=== PATIENT | male | born 1960 | race Caucasian/White ===

== ENCOUNTER 2020-02-19 09:54 | Outpatient (CLI) | payer MEDICARE, SELFPAY ==
--- NOTE | 2020-02-19 09:30 | USCV_ITS ---
Mike Schwartz Age: 59 Gender: M : 1960 Exam Date: 02/19/2020 10:15 Ordering Phys: Jair Morales MD ([email or web address]) Technologist: Abdirizak Alcazar [place] [facility] [place]: CP BP: 140 / 75 HR: 54 Rhythm: Sinus Technical Quality: Good MEASUREMENTS (Male / Female) Normal Values 2D ECHO LV Diastolic Diameter PLAX 4.1 cm 4.2 - 5.9 / 3.9 - 5.3 cm LV Systolic Diameter PLAX 2.3 cm IVS Diastolic Thickness 0.8 cm 0.6 - 1.0 / 0.6 - 0.9 cm IVS Systolic Thickness 1.3 cm LVPW Diastolic Thickness 0.9 cm 0.6 - 1.0 / 0.6 - 0.9 cm LVPW Systolic Thickness 1.4 cm LVOT Diameter 2.0 cm LV Ejection Fraction 2D Teich 76.4 % LV Ejection Fraction MOD 2C 67.4 % LV Ejection Fraction 2C AL 66.6 % LA Diameter 3.9 cm LA Width 3.5 cm LA Height 4.9 cm RA Width 3.8 cm RA Height 4.2 cm Aorta at Sinotubular Diameter 4.1 cm M-MODE LV Diastolic Diameter MM 4.4 cm 4.2 - 5.9 / 3.9 - 5.3 cm LV Systolic Diameter MM 3.0 cm LV Ejection Fraction MM Teich 59.8 % IVS Diastolic Thickness MM 1.3 cm 0.6 - 1.0 / 0.6 - 0.9 cm IVS Systolic Thickness MM 1.6 cm LVPW Diastolic Thickness MM 1.3 cm 0.6 - 1.0 / 0.6 - 0.9 cm LVPW Systolic Thickness MM 2.3 cm RV Diastolic Diameter MM 1.5 cm Aortic Annulus Diameter 4.1 cm LA Ao Ratio MM 0.9 MV E Point Septal Separation 1.0 cm DOPPLER AV Peak Velocity 111.0 cm/s LVOT Peak Velocity 108.0 cm/s AV Area Cont Eq vti 3.3 cm squared AV Area Cont Eq pk 3.0 cm squared MV Area PHT 5.0 cm squared Mitral E to A Ratio 1.2 MV E' Velocity 11.0 cm/s Mitral E to MV E' Ratio 7.1 Mitral E to LV E' Lateral Ratio 6.9 Mitral E to LV E' Septal Ratio 7.3 TR Peak Velocity 131.0 cm/s TR Peak Gradient 6.9 mmHg TV Peak E Velocity 98.0 cm/s Right Atrial Pressure 3.0 mmHg Pulmonary Artery Systolic Pressu 9.9 mmHg PV Peak Velocity 74.0 cm/s FINDINGS Left Ventricle Normal left ventricular size and systolic function, EF 72 %. No regional wall motion abnormalities. Right Ventricle Mildly increased right ventricular size. Normal right ventricular systolic function. Right Atrium Mildly increased right atrial size. Left Atrium The left atrium is normal in size. Mitral Valve Thickened mitral valve. Aortic Valve No gross abnormalities noted. leaflets could not be delineated well Tricuspid Valve No gross abnormalities noted Pulmonic Valve No gross abnormalities noted Pericardium Normal pericardium without effusion. Aorta Dilated ascending aorta, measuring 4.2 cm in diameter CONCLUSIONS Normal left ventricular size and systolic function, EF 72 %. No regional wall motion abnormalities. Dilated ascending aorta, measuring 4.2 cm in diameter. Mildly increased right atrial size. Thickened mitral valve. No significant stenotic or regurgitant lesions. Compared to the study from 11/18/2016, there may not be a significant change Dr Jair Morales MD [facility] (Electronically Signed) Final Date: 20 February 2020 08:50 S
== END 2020-02-19 09:55 | disposition home or self-care (01) ==
LOC: RAD 09:54
PROVIDERS: PCP Family Medicine; Visit Provider Internal Medicine Cardiovascular Disease
DX: I71.2 Thoracic aortic aneurysm, without rupture (principal); R07.9 Chest pain, unspecified; I05.9 Rheumatic mitral valve disease, unspecified
CPT/HCPCS: 93306

== ENCOUNTER → 2021-01-19 11:46 | Outpatient (BNVA) | payer MEDICARE, SELFPAY | PROVIDERS: PCP Family Medicine; Visit Provider Internal Medicine Cardiovascular Disease | DX: R06.02 Shortness of breath (principal); I71.2 Thoracic aortic aneurysm, without rupture; R07.89 Other chest pain; E78.5 Hyperlipidemia, unspecified | CPT/HCPCS: 80061 ==

== ENCOUNTER 2021-02-24 07:14 | Outpatient (CLI) | payer MEDICARE, SELFPAY ==
[2021-02-24 07:38] VITALS: BMI 25.8
--- NOTE | 2021-02-24 07:41 | ECG_ITS ---
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 Interpretive Statements NAME OF STUDY: LEXISCAN SESTAMIBI STRESS TEST INDICATION: Sob, PROCEDURE: At the baseline, the EKG revealed normal sinus rhythm with a poor R wave progression. The baseline blood pressure was 119/81 mm Hg with a heart rate of 71 beats/min. Lexiscan was infused over a period of 20 seconds. A total of 0.4 milligrams of Lexiscan was infused. The stress phase was continued for a total of 5 minutes. Heart rate at the end of the stress phase was 78 with a blood pressure 133/86. The EKG at the peak infusion revealed no significant changes. Sestamibi was injected 20 seconds after the Lexiscan infusion. Blood pressure at the end of the recovery phase was 130/81 with a heart rate of 81 per minute. CONCLUSION: 1. No significant EKG changes with the LexiScan infusion 2. No LexiScan induced chest pain or cardiac arrhythmia 3. Normal blood pressure and heart rate response 4. Sestamibi/sestamibi perfusion scan pending; see separate report. Electronically Signed On 02-25-2021 7:15:27 CDT by Jair Morales M.D. [id number]
--- NOTE | 2021-02-24 07:41 | NMCV_ITS ---
NM tino perf SPECT r/s* [id number] Mike Schwartz Age: 60 Gender: M : 1960 Exam Date: 02/24/2021 08:10 Ordering Phys: Jair Morales MD ([email or web address]) Technologist: ZBIGNIEW Rooney Exam Location: [facility] Indications: SHORTNESS OF BREATH STRESS TEST [facility] IMAGE PROTOCOL Rest/Stress 1 Lexiscan Day Radiopharmaceutical Dose (mCi) Administration Site Administered by Rest: Tc-99m 10.9 IV ZBIGNIEW Nelson Sestamibi Stress:Tc-99m 32.8 IV ZBIGNIEW Nelson Sestamibi Rest: 24-Feb-2021 60 Discovery 630 Stress: 24-Feb-2021 30 Discovery 630 0.4mg Lexiscan. Supine position only as patient was unable to lay prone. SPECT RESULTS Technical Quality: Excellent Raw Data Analysis: Normal Image Corrections: No attenuation or motion correction applied Summed Stress Score: 1 Summed Rest Score: 2 Summed Difference Score: 0 PERFUSION FINDINGS Small area of slightly decreased tracer uptake was noted in the basal and mid inferior wall segment with no significant reversibility. FUNCTIONAL RESULTS (calculated via Gated SPECT) Stress Image LV EF (%): 82 Stress EDV (mL):94 TID: 0.95 Stress ESV (mL):17 FUNCTIONAL FINDINGS: Segmental wall motion analysis revealing no gross wall motion abnormalities. IMPRESSIONS 1. Myocardial perfusion imaging revealing a small area of slightly decreased persistent tracer uptake in the inferior wall region, suggestive of myocardial scarring versus attenuation artifact. 2. Normal LV ejection fraction 82%. 3. LV wall motion analysis revealing no gross wall motion normalities. 4. Normal LV volume. No significant coronary ischemia, based on the above findings Dr Jair Morales MD [facility] (Electronically Signed) Final Date: 25 February 2021 06:16 S
--- NOTE | 2021-02-24 09:31 | PC.NURSE ---
pt not able to hit target heart rate. dr adan verbal order to change to alexia
[2021-02-24] MEDS: regadenoson 0.4 Mg/5 ml Syringe IVP (09:32)
[2021-02-24 09:49] VITALS: BP 130/81; PULSE 78
== END 2021-02-24 07:15 | disposition home or self-care (01) ==
LOC: CDL 07:19
PROVIDERS: PCP Family Medicine; Visit Provider Internal Medicine Cardiovascular Disease
DX: R07.89 Other chest pain (principal)
CPT/HCPCS: 78452; 93017; A9500; J2785

== ENCOUNTER → 2021-06-01 15:35 | Outpatient (BNVA) | payer MEDICARE, SELFPAY | PROVIDERS: PCP Family Medicine; Visit Provider Nurse Practitioner Family | DX: R50.9 Fever, unspecified (principal); R82.90 Unspecified abnormal findings in urine; R30.0 Dysuria; Z12.5 Encounter for screening for malignant neoplasm of prostate | CPT/HCPCS: 80053; 81000; 86000; 86618; 86666; 86757; 87077; 87086; 87184; G0103 ==

== ENCOUNTER → 2021-06-17 09:10 | Outpatient (BNVA) | payer MEDICARE, SELFPAY | PROVIDERS: PCP Family Medicine; Visit Provider Urology | DX: R97.20 Elevated prostate specific antigen [PSA] (principal) | CPT/HCPCS: 84153 ==

== ENCOUNTER → 2021-07-13 15:05 | Outpatient (BNVA) | payer MEDICARE, SELFPAY | PROVIDERS: PCP Family Medicine; Visit Provider Urology | DX: R97.20 Elevated prostate specific antigen [PSA] (principal) | CPT/HCPCS: 84153 ==

== ENCOUNTER → 2021-07-22 12:00 | Outpatient (BNVA) | payer MEDICARE, SELFPAY | PROVIDERS: PCP Family Medicine; Visit Provider Internal Medicine Cardiovascular Disease | DX: E78.5 Hyperlipidemia, unspecified (principal); E78.2 Mixed hyperlipidemia | CPT/HCPCS: 80061 ==

== ENCOUNTER 2021-10-20 11:32 | Outpatient (CLI) | payer MEDICARE, SELFPAY ==
--- NOTE | 2021-10-20 12:18 | CT_ITS ---
WS: [id number] CT angio chest [id number] REASON FOR EXAM: expanding aorta TECHNIQUE: Coronal and sagittal 2-D and MIP reformations. IV CONTRAST ADMINISTERED: 95 mL of Omnipaque 350 TOTAL EXAM DLP: 1326.[address] scans at [facility] use at least one of these dose optimization techniques: automat ed exposure control; mA and/or kV adjustment per patient size (includes targeted exams where dose is matched to clinical indication); or iterative reconstruction. FINDINGS: Normal pulmonary arteries. The ascending thoracic aorta measured anterior to the right main pulmonary artery measures 4.5 cm. M easuring this same segment of the thoracic aorta on the previous examination of 12/20/2017 also reveal s 4.5 cm. There is thickening thickening of the left ventricular myocardium, no change. No valvular c alcification. Previous aortocoronary bypass surgery. Small reactive nodes in the mediastinum and hilar regions with no interval change compared to the pre vious examination. No lung nodule or lung mass. No pleural effusion. Degenerative changes in the thoracic spine. No focal lesion of the bony thorax. CT/CT angio chest [id number] IMPRESSION: Stable abnormal chest CT with descending thoracic aorta diameter 4.5 cm. Left ventricular hypertrophy.
[2021-10-20] MEDS: iohexol 300 mg/mL 100 mL Btl IV (13:12)
[2021-10-20 13:50] LABS: Blood Urea Nitrogen 18 mg/dL (8-23); Glomerular Filtration Rate 75.7 mL/min (90-130)
== END 2021-10-20 11:33 | disposition home or self-care (01) ==
PROVIDERS: PCP Family Medicine; Visit Provider Internal Medicine Cardiovascular Disease
DX: Z01.812 Encounter for preprocedural laboratory examination (principal); I71.2 Thoracic aortic aneurysm, without rupture
CPT/HCPCS: 71275; 82565; 84520

== ENCOUNTER → 2022-01-13 09:57 | Outpatient (BNVA) | payer MEDICARE, SELFPAY | PROVIDERS: PCP Family Medicine; Visit Provider Internal Medicine Cardiovascular Disease | DX: I10 Essential (primary) hypertension (principal); E78.2 Mixed hyperlipidemia; R97.20 Elevated prostate specific antigen [PSA] | CPT/HCPCS: 80061; 80076; 84153 ==

== ENCOUNTER → 2022-06-06 15:19 | Outpatient (BNVA) | payer MEDICARE, SELFPAY | PROVIDERS: PCP Family Medicine; Visit Provider Nurse Practitioner Family | DX: K90.49 Malabsorption due to intolerance, not elsewhere classified (principal); L50.0 Allergic urticaria; W57.XXXA Bitten or stung by nonvenomous insect and other nonvenomous arthropods, initial encounter | CPT/HCPCS: 86003; 86008 ==

== ENCOUNTER → 2022-09-27 14:03 | Outpatient (BNVA) | payer MEDICARE, SELFPAY | PROVIDERS: PCP Family Medicine; Visit Provider Internal Medicine Cardiovascular Disease | DX: I25.10 Atherosclerotic heart disease of native coronary artery without angina pectoris (principal); E78.2 Mixed hyperlipidemia; I10 Essential (primary) hypertension; G47.33 Obstructive sleep apnea (adult) (pediatric); I71.20 Thoracic aortic aneurysm, without rupture, unspecified; F17.200 Nicotine dependence, unspecified, uncomplicated | CPT/HCPCS: 99214 ==

== ENCOUNTER → 2022-11-07 10:56 | Outpatient (BNVA) | payer MEDICARE, SELFPAY | PROVIDERS: PCP Family Medicine; Visit Provider Internal Medicine Cardiovascular Disease | DX: E78.2 Mixed hyperlipidemia (principal); I10 Essential (primary) hypertension; I25.10 Atherosclerotic heart disease of native coronary artery without angina pectoris; R07.89 Other chest pain | CPT/HCPCS: 80061; 80076 ==

== ENCOUNTER 2022-12-16 11:50 | Outpatient (CLI) | payer MEDICARE, SELFPAY ==
--- NOTE | 2022-12-16 12:27 | XR_ITS ---
WS: [id number] Thoracic spine, AP and lateral views, 12/16/2022 Clinical Data: M54.9 - Dorsalgia, unspecified Comparison: None. Findings: No compression fractures are seen. The disc heights are normal. There is moderate osteoarthritis of all the thoracic vertebral bodies. The paravertebral regions are not remarkable. XR/XR thoracic spine 3V* [id number] Impression: Moderate osteoarthritis of the thoracic vertebral bodies.
--- NOTE | 2022-12-16 12:27 | XR_ITS ---
WS: [id number] Lumbar spine, 3 views, 12/16/2022 Clinical Data: M54.9 - Dorsalgia, unspecified Comparison: None. Findings: No compression fractures or subluxation is seen. There is degenerative disc narrowing at L4-L5 and L5 -S1. Anterior osteophyte formation occurs from L2 through L5. The transverse processes and SI joints are normal. There is a slight dextroscoliosis. XR/XR lumbar spine 2-3V* [id number] Impression: 1. Degenerative disc narrowing at L4-L5 and L5-S1. 2. Osteophytes from L2 through L5
== END 2022-12-16 11:51 | disposition home or self-care (01) ==
PROVIDERS: PCP Family Medicine; Visit Provider Nurse Practitioner Family
DX: M47.814 Spondylosis without myelopathy or radiculopathy, thoracic region (principal); G89.29 Other chronic pain; M48.07 Spinal stenosis, lumbosacral region; M25.78 Osteophyte, vertebrae
CPT/HCPCS: 72072; 72100

== ENCOUNTER → 2022-12-29 13:57 | Outpatient (BNVA) | payer MEDICARE, SELFPAY | PROVIDERS: PCP Family Medicine; Referring Provider Nurse Practitioner Family; Visit Provider Physician Assistant | DX: M47.26 Other spondylosis with radiculopathy, lumbar region (principal); M54.9 Dorsalgia, unspecified; M51.36 Other intervertebral disc degeneration, lumbar region; G89.29 Other chronic pain | CPT/HCPCS: 99203 ==

== ENCOUNTER 2023-01-17 13:48 | Outpatient (CLI) | payer MEDICARE, SELFPAY ==
--- NOTE | 2023-01-17 13:45 | MR_ITS ---
WS: [id number] MRI LUMBAR SPINE NONCONTRAST TECHNIQUE: Sagittal T1, T2 and STIR imaging. Axial T1 and T2 imaging. CLINICAL INFORMATION: low back pain COMPARISON: None. FINDINGS: Mild lumbar curve. No acute compression. Disc bulging worse at L4-L5 and L5-S1. Slight anterolisthesi s L4 on L5. L1-L2: Normal. L2-L3: Mild annular bulging. Slight effacement of ventral thecal sac. Narrowing subarticular recess b ilaterally. Small RIGHT foraminal protrusion with contact of the exiting RIGHT L2 nerve root. Mild fa cet arthropathy. L3-L4: Mild annular bulge with mild central canal stenosis. Impingement traversing L4 nerve roots armando aterally. Mild LEFT foraminal narrowing. Mild to moderate facet arthropathy. L4-L5: Shallow central disc protrusion with moderate central canal stenosis. Impingement traversing L 5 nerve roots bilaterally. Disc material extends into LEFT subarticular recess. Moderate RIGHT forami nal narrowing with slight impingement on the exiting L4 nerve root. Mild LEFT foraminal narrowing. Mo derate facet arthropathy. L5-S1: Tiny shallow central protrusion. Slight impingement traversing S1 nerve roots bilaterally. Mil d bilateral foraminal narrowing. Visualized pelvic bony structures: Normal. Paravertebral soft tissues: Normal. Small LEFT renal cyst. MR/MR lumbar spine wo con* [id number] IMPRESSION: 1. Shallow central disc protrusion L4-L5 with moderate central canal stenosis. Disc material extends into the LEFT subarticular recess with impingement trave rsing LEFT greater than RIGHT L5 nerve roots. 2. Mild to moderate RIGHT L4-L5 foraminal narrowing impinges the exiting RIGHT L4 nerve root. 3. Mild central canal stenosis L3-L4 with mild annular bulging and tiny annula r fissure. Impingement traversing L4 nerve roots. 4. Mild LEFT L3-L4 foraminal narrowing. 5. Shallow central protrusion L5-S1 with slight impingement traversing S1 nerv e roots. Mild RIGHT greater than LEFT foraminal narrowing at this level. 6. Mild RIGHT L2-L3 foraminal narrowing. 7. Moderate facet arthropathy worse L4-L5.
== END 2023-01-17 13:49 | disposition home or self-care (01) ==
PROVIDERS: PCP Family Medicine; Visit Provider Physician Assistant
DX: M47.26 Other spondylosis with radiculopathy, lumbar region (principal); M51.27 Other intervertebral disc displacement, lumbosacral region; M48.061 Spinal stenosis, lumbar region without neurogenic claudication
CPT/HCPCS: 72148; 99203

== ENCOUNTER → 2023-01-31 11:11 | Outpatient (BNVA) | payer MEDICARE, SELFPAY | PROVIDERS: PCP Family Medicine; Visit Provider Physician Assistant | DX: M48.062 Spinal stenosis, lumbar region with neurogenic claudication (principal); G89.29 Other chronic pain; M54.9 Dorsalgia, unspecified; M47.26 Other spondylosis with radiculopathy, lumbar region | CPT/HCPCS: 99213 ==

== ENCOUNTER 2023-02-08 10:07 | Outpatient (CLI) | payer MEDICARE, SELFPAY ==
--- NOTE | 2023-02-08 10:30 | CT_ITS ---
WS: [id number] CTA THORACIC TECHNIQUE: Contrast enhanced CTA of the thoracic aorta with coronal and sagittal reformatted images a nd maximum intensity projection (MIP) images. CLINICAL INFORMATION: aneurysm COMPARISON: CTA October 20, 2021 . DLP: 660.[address] scans at [facility] use at least one of these dose optimization techniques: automated e xposure control; mA and/or kV adjustment per patient size (includes targeted exams where dose is matc hed to clinical indication); or iterative reconstruction. FINDINGS: Mild chronic emphysematous changes. Both lungs are well aerated. No acute pulmonary infiltrates. Slig ht bibasilar atelectasis. Adrenal glands are normal. Small esophageal hiatal hernia. Mild thoracic kyphosis. Hypertrophic blackburn es thoracic spine. Ascending thoracic aorta measures 4.3 cm unchanged compared to previous. Normal ca liber aortic arch and descending thoracic aorta. Celiac and SMA are patent. Slightly aneurysmal upper abdominal aorta partially visualized measuring 1.9 x 2.1 cm. Adrenal glands are normal. Partially visualized renal parenchymal enhancement appears normal CT/CT angio chest [id number] IMPRESSION: 1. No significant changes compared to previous. 2. Stable ascending thoracic aortic aneurysm measuring 4.3 CM. 3. Slightly aneurysmal upper abdominal aorta partially visualized measuring 1. 9 x 2.1 cm. 4. Lungs are well aerated. 5. Small esophageal hiatal hernia.
[2023-02-08 10:57] LABS: Blood Urea Nitrogen 20 mg/dL (8-23); Glomerular Filtration Rate 85.2 mL/min (90-130)
[2023-02-08] MEDS: iohexol 350 mg/mL 500 mL Btl (per mL) IV (11:11)
== END 2023-02-08 10:08 | disposition home or self-care (01) ==
PROVIDERS: PCP Family Medicine; Visit Provider Internal Medicine Cardiovascular Disease
DX: I71.20 Thoracic aortic aneurysm, without rupture, unspecified (principal); Z01.89 Encounter for other specified special examinations
CPT/HCPCS: 71275; 82565; 84520; 99214; Q9967

== ENCOUNTER → 2023-04-04 15:37 | Outpatient (BNVA) | payer MEDICARE, SELFPAY | PROVIDERS: PCP Family Medicine; Visit Provider Internal Medicine Cardiovascular Disease | DX: I25.10 Atherosclerotic heart disease of native coronary artery without angina pectoris (principal); I10 Essential (primary) hypertension; E78.2 Mixed hyperlipidemia; G47.33 Obstructive sleep apnea (adult) (pediatric); I71.20 Thoracic aortic aneurysm, without rupture, unspecified; F17.200 Nicotine dependence, unspecified, uncomplicated | CPT/HCPCS: 99214 ==

== ENCOUNTER → 2023-10-16 15:29 | Outpatient (BNVA) | payer MEDICARE, SELFPAY | PROVIDERS: PCP Family Medicine; Visit Provider Internal Medicine Cardiovascular Disease | DX: I71.20 Thoracic aortic aneurysm, without rupture, unspecified (principal); E78.5 Hyperlipidemia, unspecified; E78.2 Mixed hyperlipidemia; I10 Essential (primary) hypertension; I25.10 Atherosclerotic heart disease of native coronary artery without angina pectoris; F17.210 Nicotine dependence, cigarettes, uncomplicated | CPT/HCPCS: 99214 ==

== ENCOUNTER 2023-10-19 11:30 | Outpatient (CLI) | payer MEDICARE, SELFPAY ==
[2023-10-19 12:50] LABS: Chol HDL Ratio 3.11 mg/dL (1.0-5.00); Cholesterol 118 mg/dL (0-200); HDL Cholesterol 38 mg/dL (60-100); LDL Cholesterol Calculated 62 mg/dL (50-129); LDL HDL Ratio 1.63 RATIO (0.00-3.22); Triglycerides 90 mg/dL (0-150)
== END 2023-10-19 11:31 | disposition home or self-care (01) ==
LOC: LAB 11:31
PROVIDERS: PCP Family Medicine; Visit Provider Internal Medicine Cardiovascular Disease
DX: E78.5 Hyperlipidemia, unspecified (principal)
CPT/HCPCS: 36415; 80061

== ENCOUNTER → 2023-10-20 10:50 | Outpatient (BNVA) | payer MEDICARE, SELFPAY | PROVIDERS: PCP Family Medicine; Visit Provider Nurse Practitioner Family | DX: Z86.19 Personal history of other infectious and parasitic diseases (principal); R52 Pain, unspecified; R53.83 Other fatigue | CPT/HCPCS: 86000; 86618; 86666; 86757 ==

== ENCOUNTER → 2023-10-30 08:26 | Outpatient (BNVA) | payer MEDICARE, SELFPAY | PROVIDERS: PCP Family Medicine; Visit Provider Nurse Practitioner Family | DX: Z86.19 Personal history of other infectious and parasitic diseases (principal); R52 Pain, unspecified; R53.83 Other fatigue | CPT/HCPCS: 86160; 86668 ==

== ENCOUNTER → 2023-12-07 10:50 | Outpatient (BNVA) | payer MEDICARE, SELFPAY | PROVIDERS: PCP Nurse Practitioner Family; Visit Provider Nurse Practitioner Family | DX: I10 Essential (primary) hypertension (principal); R52 Pain, unspecified; M79.10 Myalgia, unspecified site; R53.83 Other fatigue; E78.2 Mixed hyperlipidemia; A69.20 Lyme disease, unspecified; R50.9 Fever, unspecified | CPT/HCPCS: 80053; 80061; 82306; 82607; 84443; 85025; 85651; 86141 ==

== ENCOUNTER → 2023-12-14 10:59 | Outpatient (BNVA) | payer MEDICARE, SELFPAY | PROVIDERS: PCP Nurse Practitioner Family; Referring Provider Nurse Practitioner Family; Visit Provider Nurse Practitioner Family | DX: L57.0 Actinic keratosis (principal); L82.1 Other seborrheic keratosis; L57.8 Other skin changes due to chronic exposure to nonionizing radiation; D22.62 Melanocytic nevi of left upper limb, including shoulder; L81.4 Other melanin hyperpigmentation; H01.134 Eczematous dermatitis of left upper eyelid | CPT/HCPCS: 17000; 99203 ==

== ENCOUNTER → 2023-12-26 11:15 | Outpatient (BNVA) | payer MEDICARE, SELFPAY | PROVIDERS: PCP Nurse Practitioner Family; Visit Provider Nurse Practitioner Family | DX: R53.83 Other fatigue (principal); Z12.5 Encounter for screening for malignant neoplasm of prostate; R50.9 Fever, unspecified; A69.20 Lyme disease, unspecified; W57.XXXA Bitten or stung by nonvenomous insect and other nonvenomous arthropods, initial encounter; Z86.19 Personal history of other infectious and parasitic diseases | CPT/HCPCS: 86160; 86618; 86666; 86668; 86757; G0103 ==

== ENCOUNTER 2024-01-18 12:45 | Emergency (ER) | payer MEDICARE, SELFPAY ==
--- NOTE | 2024-01-18 12:45 | ECG_ITS ---
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 Measurements Intervals [place] Rate: 65 P: 45 TX: 181 QRS: -13 QRSD: 105 T: 57 QT: 381 QTc: 398 Interpretive Statements SINUS RHYTHM POSSIBLE LEFT ATRIAL ENLARGEMENT [-0.1mV P-WAVE IN V1/V2] SEPTAL MYOCARDIAL INFARCTION , PROBABLY OLD [40+ ms Q WAVE IN V1/V2] Compared to ECG 01/28/2017 10:31:36 Myocardial infarct finding now present Electronically Signed On 01-18-2024 22:01:02 CDT by Jair Morales M.D. [id number] f
[2024-01-18 12:47] VITALS: BP 113/76; PULSE 60; RESP 16; TEMP 36.6; O2SAT 96; BMI 25.8
--- NOTE | 2024-01-18 13:17 | PC.NURSE ---
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
[2024-01-18 13:26] VITALS: BP 118/76; PULSE 60; RESP 18; O2SAT 93
[2024-01-18 13:29] LABS: Basophils % 0.6 %; Eosinophils # 0.2 10^3/uL (0.0-0.8); Eosinophils % 2.5 %; Hematocrit 45.3 % (37-53); Lymphocytes # 3.2 10^3/uL (0.8-4.8); Lymphocytes % 44.9 %; Mean Corpuscular HGB Conc 32.9 g/dL (30-55); Mean Corpuscular Hemoglobin 30.2 pg (27-33); Mean Corpuscular Volume 91.9 fl (82-101); Mean Platelet Volume 8.8 fL (7.4-10.4); Monocytes # 0.5 10^3/uL (0.2-0.9); Neutrophils # 3.18 10^3/uL (1.8-7.7); Neutrophils % 44.9 %; Nucleated Red Blood Cells % 0 %; Platelet Count 246 10^3/cmm (157-399); Red Blood Count 4.93 10^6/uL (3.85-5.65); Red Cell Distribution Width 12.8 % (12.1-15.1)
[2024-01-18 13:45] LABS: Alanine Aminotransferase 16 U/L (0-41); Albumin Level 4.3 g/dL (3.5-5.2); Alkaline Phosphatase 68 U/L (40-130); Anion Gap 14.3 (5-19); Aspartate Amino Transferase 20 U/L (0-40); Blood Urea Nitrogen 16 mg/dL (8-23); Calcium 9.3 mg/dL (8.5-10.5); Carbon Dioxide 27 mmol/L (22-29); Chloride 104 mmol/L (98-107); Creatinine Clr Calc Pharmacy 86.9914; Globulin 2.9 g/dL (1.3-4.6); Glucose 105 mg/dL (65-115); Osmolality Calculated 294 mOsm/kg (285-295); Potassium 4.3 mmol/L (3.5-5.1); Sodium 141 mmol/L (136-145); Total Bilirubin 0.8 mg/dL (0.15-1.2); Total Protein 7.2 g/dL (6.6-8.7)
[2024-01-18 14:00] VITALS: BP 114/77; PULSE 57; RESP 14; O2SAT 95
--- NOTE | 2024-01-18 14:13 | ED_ITS ---
HPI - Chest Pain 2 General: Chief Complaint: Chest Pain Stated Complaint: chest pain Time Seen by Provider: 01/18/24 13:14 Source: patient Mode of arrival: ambulatory History of Present Illness: 63-year-old male presents emergency room complaining of chest discomfort. Is been going on intermittently for the last couple of days. He has not noticed anything that makes it better or worse she has a known history of coronary disease and about 12 years ago had a heart attack he had several stents placed he is still taking clopidogrel he does not take aspirin daily. He has not noticed anything that aggravates or relieves his symptoms. He does have Lyme's disease states he is having a flareup of this and he has had 2 full rounds of doxycycline and is currently on his third. He has no radiation of pain to the back or arms at this time. He does have a known history of an aneurysm that has been stable for the last several years. MD complaint: chest pain Pertinent past history: coronary artery disease Onset (ago): day(s) Timing of current episode: episodic Prior episodes: Yes Onset: during rest Pain location: left chest Pain radiation: left arm Severity: mild Quality: aching and heaviness Relieving factors: nothing Exacerbating factors: nothing Associated symptoms: Deny abdominal pain, diaphoresis, dyspnea, fever(s), leg edema, nausea, palpitations, sense of impending doom, syncope or vomiting Treatment prior to arrival: none Review of Systems 2 Const: Denies: fever(s), chills or diaphoresis Card: Denies: chest pain, palpitations or syncope Resp: Denies: dyspnea GI: Denies: abdominal pain, nausea or vomiting : Denies: dysuria, urinary frequency or urinary urgency Musc: Denies: neck pain or back pain Skin/Breast: Denies: rash PFSH ED 2 PFSH: Medical History Lyme disease Atypical chest pain CAD (coronary artery disease) Hypertension Hyperlipidemia Thoracic aortic aneurysm GERD (gastroesophageal reflux disease) Anxiety ADALBERTO (obstructive sleep apnea) Surgical History S/P knee replacement Family History Father CAD (coronary artery disease) Grandfather CAD (coronary artery disease) Mother Cancer Hyperlipidemia Hypertension Grandmother Cancer Stroke Sister Diabetes Other Psychiatric illness Denies family history of Clotting disorder Dementia Chronic kidney disease (CKD) Suicide Anesthesia complication Bleeding disorder Lung disease Social History Smoking and tobacco/nicotine status: current every day tobacco/nicotine user cigarettes Packs smoked per day: 1 Alcohol intake: never Substance/Drug Use: never Physical Exam 2 Const: COMMON NORMALS: no acute distress GENERAL APPEARANCE: cooperative and comfortable ORIENTATION/CONSCIOUSNESS: Yes awake, Yes oriented to person, Yes oriented to place and Yes oriented to time HENMT: COMMON NORMALS: normocephalic, atraumatic and hearing grossly normal bilaterally HEAD & SCALP: normocephalic and atraumatic Resp: COMMON NORMALS: normal respiratory effort, No retractions, No use of accessory muscles and clear to auscultation bilaterally AUSCULTATION: clear to auscultation bilaterally Cardio: COMMON NORMALS: regular rate, regular rhythm and No murmurs present (Cardio) RATE: regular rate RHYTHM: regular rhythm GI: COMMON NORMALS: Soft to palpation and No hepatosplenomegaly present A USCULTATION: Yes normoactive bowel sounds PALPATION: Yes Soft to palpation, No Tenderness to palpation present (GI), No Guarding due to palpation present (GI) and Yes No hepatosplenomegaly present Extremity: COMMON NORMALS: normal to inspection, capillary refill normal, no clubbing, cyanosis or edema, no calf tenderness and no pedal edema Neuro: SENSORIUM/ORIENTATION: Yes oriented to person, Yes oriented to place and Yes oriented to time Skin: COMMON NORMALS: no rashes or lesions noted GENERAL SKIN EXAM: no rashes or lesions noted Course 2 Vital Signs: Vital signs: Vital Signs Temperature 97.8 F 01/18/24 12:47 Pulse Rate 58 L 01/18/24 15:30 Respiratory Rate 16 01/18/24 15:30 Blood Pressure 125/82 01/18/24 15:30 Pulse Oximetry 95 01/18/24 15:30 Oxygen Delivery Me thod Room Air 01/18/24 15:30 MDM - Chest Pain Medical Decision Making No signs of acute coronary syndrome PE pneumonia or pneumothorax. He has no widening of his mediastinum from previous films. He does have a thoracic aneurysm but he has no pain radiating into his back suggestive of current aneurysm. He is symptom-free at this time. Reviewed his previous CTA done about a year ago. Is actually read as slightly smaller than her previous CTA done 2 years ago. Will go ahead and discharge the patient home have him follow- up with primary care return if has any further problems. Medical Records I reviewed the patient's medical records. Lab Data I reviewed the patient's lab results. 01/18/24 13:10 01/18/24 13:10 Radiology Impressions Chest X-Ray 01/18/24 14:13 IMPRESSION: No acute findings. Laboratory Results WBC 7.10 10^3/uL (3.29-11.43) 01/18/24 13:10 RBC 4.93 10^6/uL (3.85-5.65) 01/18/24 13:10 Hgb 14.90 g/dL (11.27-16.99) 01/18/24 13:10 Hct 45.3 % (37-53) 01/18/24 13:10 MCV 91.9 fl (82-101) 01/18/24 13:10 MCH 30.2 pg (27-33) 01/18/24 13:10 MCHC 32.9 g/dL (30-55) 01/18/24 13:10 RDW 12.8 % (12.1-15.1) 01/18/24 13:10 Plt Count 246 10^3/cmm (157-399) 01/18/24 13:10 MPV 8.8 fL (7.4-10.4) 01/18/24 13:10 Neut % (Auto) 44.9 % 01/18/24 13:10 Lymph % (Auto) 44.9 % 01/18/24 13:10 [place] % (Auto) 7.0 % 01/18/24 13:10 Eos % (Auto) 2.5 % 01/18/24 13:10 Baso % (Auto) 0.6 % 01/18/24 13:10 Neut # (Auto) 3.18 10^3/uL (1.8-7.7) 01/18/24 13:10 Lymph # (Auto) 3.2 10^3/uL (0.8-4.8) 01/18/24 13:10 [place] # (Auto) 0.5 10^3/uL (0.2-0.9) 01/18/24 13:10 Eos # (Auto) 0.2 10^3/uL (0.0-0.8) 01/18/24 13:10 Baso # (Auto) 0.0 10^3/uL (0.0-0.1) 01/18/24 13:10 Nucleated RBC % (auto) 0 % 01/18/24 13:10 Nucleated RBCs # 0.0 /100WBC 01/18/24 13:10 Sodium 141 mmol/L (136-145) 01/18/24 13:10 Potassium 4.3 mmol/L (3.5-5.1) 01/18/24 13:10 Chloride 104 mmol/L (98-107) 01/18/24 13:10 Carbon Dioxide 27 mmol/L (22-29) 01/18/24 13:10 Anion Gap 14.3 (5-19) 01/18/24 13:10 BUN 16 mg/dL (8-23) 01/18/24 13:10 Creatinine 0.9 mg/dL (0.7-1.2) 01/18/24 13:10 GFR Calculation 85.0 mL/min (90-130) L 01/18/24 13:10 Glucose 105 mg/dL (65-115) 01/18/24 13:10 Calculated Osmolality 294 mOsm/kg (285-295) 01/18/24 13:10 Calcium 9.3 mg/dL (8.5-10.5) 01/18/24 13:10 Total Bilirubin 0.8 mg/dL (0.15-1.2) 01/18/24 13:10 AST 20 U/L (0-40) 01/18/24 13:10 ALT 16 U/L (0-41) 01/18/24 13:10 Alkaline Phosphatase 68 U/L (40-130) 01/18/24 13:10 Troponin T Baseline < 6 ng/L (0-15) 01/18/24 13:10 Troponin T 120 Minute 6.00 ng/L (0-15) 01/18/24 16:21 Total Protein 7.2 g/dL (6.6-8.7) 01/18/24 13:10 Albumin 4.3 g/dL (3.5-5.2) 01/18/24 13:10 Globulin 2.9 g/dL (1.3-4.6) 01/18/24 13:10 Urine Color Yellow (Yellow) 01/18/24 13:11 Urine Appearance Clear (CLEAR) 01/18/24 13:11 Urine pH 5 (5-7) 01/18/24 13:11 Ur Specific [place] 1.015 (1.005-1.030) 01/18/24 13:11 Urine Protein Neg (Negative) 01/18/24 13:11 Urine Glucose (UA) Norm (Normal) 01/18/24 13:11 Urine Ketones Negative (Negative) 01/18/24 13:11 Urine Blood 2+ (Negative) H 01/18/24 13:11 Urine Nitrate Negative (Negative) 01/18/24 13:11 Urine Bilirubin Neg (Negative) 01/18/24 13:11 Urine Urobilinogen Norm mg/dL (Negative) 01/18/24 13:11 Ur Leukocyte Esterase Negative (Negative) 01/18/24 13:11 Urine RBC None /hpf (0-2) 01/18/24 13:11 Urine WBC None /hpf (0-5) 01/18/24 13:11 Ur Squamous Epith Cells None /hpf (0-5) 01/18/24 13:11 Amorphous Sediment Not Reportable 01/18/24 13:11 Urine Bacteria Trace /hpf (NONE) 01/18/24 13:11 All radiology interpretation(s) finalized by discharge Discharge Plan Discharge Patient Disposition: Home Clinical Impression: Atypical chest pain, Lyme disease Condition: Stable Prescriptions: No Action multivitamin Tablet 1 tab PO DAILY acetaminophen [Tylenol] 325 mg tablet 325 mg PO QID PRN (Reason: Pain) atorvastatin 40 mg tablet 40 mg PO DAILY Qty: 90 3RF carvedilol 6.25 mg tablet 6.25 mg PO BID Qty: 90 3RF Rx Instructions: must administer with a meal/food doxycycline hyclate 100 mg tablet 100 mg PO BID 21 Days Qty: 42 0RF hydrocortisone 2.5 % cream See Rx Instructions .ROUTE .COMPLEX Rx Instructions: APPLY TOPICALLY TO AFFECTED AREAS OF EYELIDS TWICE DAILY NO MORE THAN 2 WEEKS OUT OF THE MONTH. Fish Oil 1,000 mg (120 mg-180 mg) Capsule 1 cap PO DAILY clopidogrel 75 mg tablet 75 mg PO DAILY amlodipine 5 mg tablet 5 mg PO DAILY tamsulosin 0.4 mg capsule 0.4 mg PO DAILY ropinirole 0.5 mg tablet 0.5 mg PO BEDTIME lisinopril 40 mg tablet 40 mg PO DAILY Discharge Orders: Discharge ED (Routine); Ordered 01/18/24 Ordered By: Patrick Mosley Referrals: Paris Mazariegos, GOAT DRIVER [Primary Care Provider] - Discharge Diet: Usual diet Discharge Activity: Increase activity as tolerated Patient Instructions: Opioid Safety, Pain Management Activity Restrictions/Additional Instructions: Thank you for choosing [facility] for your healthcare needs today. It is very important that you follow up as instructed or that you return to the Emergency Department should you have concerns or if your condition changes or worsens in any way. You were seen today for chest discomfort. Your chest x-ray was normal the cardiac enzymes and EKGs were normal. There is no pneumonia or pneumothorax no evidence of widening of the mediastinum. Will discharge you home. If you have worsening or change symptoms return. Coding Level of Care Code ED Catering Associate for Otf Abraham
--- NOTE | 2024-01-18 14:13 | XRR_ITS ---
PROCEDURE INFORMATION: Exam: XR Chest Exam date and time: 01/18/2024 2:23 PM Age: 63 years old Clinical indication: Cough and dyspnea; Additional info: Dyspnea/cough TECHNIQUE: Imaging protocol: Radiologic exam of the chest. Views: 1 view. COMPARISON: No relevant prior studies available. FINDINGS: Lungs: Unremarkable. No consolidation. Pleural spaces: Unremarkable. No pleural effusion. No pneumothorax. Heart/Mediastinum: Unremarkable. No cardiomegaly. Bones/joints: Unremarkable. XR/XR chest 1V portable [id number] IMPRESSION: No acute findings.
[2024-01-18 14:24] LABS: Add Urine Microscopic? YES; Bilirubin Urine Neg (Negative); Blood Urine 2+ (Negative); Glucose Urine UA Norm (Normal); Ketones Urine Negative (Negative); Leukocyte Esterase Urine Negative (Negative); Nitrate Urine Negative (Negative); Protein Urine Neg (Negative); Specific Gravity, Urine 1.015 (1.005-1.030); Urine Appearance Clear (CLEAR); Urine Color Yellow (Yellow); Urobilinogen Urine Norm (Negative); pH Urine 5 (5-7)
[2024-01-18 14:25] LABS: Bacteria Urine TRACE /hpf
[2024-01-18 15:30] VITALS: BP 125/82; PULSE 58; RESP 16; O2SAT 95
--- NOTE | 2024-01-18 16:14 | ECG_ITS ---
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 Measurements Intervals [place] Rate: 55 P: 18 [place]: 179 QRS: -1 QRSD: 98 T: 59 QT: 414 QTc: 399 Interpretive Statements SINUS BRADYCARDIA SEPTAL MYOCARDIAL INFARCTION , PROBABLY OLD [40+ ms Q WAVE IN V1/V2] Compared to ECG 01/18/2024 12:45:05 Sinus rhythm no longer present Myocardial infarct finding still present Electronically Signed On 01-18-2024 22:04:38 CDT by Jair Morales M.D. [id number]
[2024-01-18 17:00] VITALS: BP 118/80; PULSE 61; RESP 15; O2SAT 96
[2024-01-18 17:11] LABS: Troponin(5th) Baseline < 6 ng/L (0-15)
[2024-01-18 17:29] LABS: Troponin 5 2HR Delta 0.00001 ABS# (0-10)
[2024-01-18 17:36] VITALS: BP 121/79; PULSE 61; RESP 14; O2SAT 97
== END 2024-01-18 17:39 | disposition home or self-care (01) ==
PROVIDERS: Emergency Provider Family Medicine; PCP Nurse Practitioner Family
DX: R07.89 Other chest pain (principal); A69.20 Lyme disease, unspecified; Z79.02 Long term (current) use of antithrombotics/antiplatelets; F17.210 Nicotine dependence, cigarettes, uncomplicated; I25.10 Atherosclerotic heart disease of native coronary artery without angina pectoris; I10 Essential (primary) hypertension; E78.5 Hyperlipidemia, unspecified
CPT/HCPCS: 36415; 71045; 80053; 81001; 84484; 85025; 93005; 99285

== ENCOUNTER → 2024-05-29 09:51 | Outpatient (BNVA) | payer MEDICARE, SELFPAY | PROVIDERS: PCP Nurse Practitioner Family; Visit Provider Nurse Practitioner Family | DX: I71.20 Thoracic aortic aneurysm, without rupture, unspecified (principal); I25.10 Atherosclerotic heart disease of native coronary artery without angina pectoris; I10 Essential (primary) hypertension; E78.2 Mixed hyperlipidemia; F17.210 Nicotine dependence, cigarettes, uncomplicated | CPT/HCPCS: 99214 ==

== ENCOUNTER → 2024-05-30 09:56 | Outpatient (BNVA) | payer MEDICARE, SELFPAY | PROVIDERS: PCP Nurse Practitioner Family; Visit Provider Nurse Practitioner Family | DX: R25.2 Cramp and spasm (principal); R50.9 Fever, unspecified; R52 Pain, unspecified; E55.9 Vitamin D deficiency, unspecified | CPT/HCPCS: 80053; 82306; 83735; 85025; 86617 ==

== ENCOUNTER 2024-06-17 08:59 | Outpatient (CLI) | payer MEDICARE, SELFPAY ==
--- NOTE | 2024-06-17 09:00 | CT_ITS ---
WS: [id number] CTA THORACIC AORTA WITH AND WITHOUT CONTRAST HISTORY: ascending aortic aneurysm TECHNIQUE: CTA imaging of the thorax is performed with and without contrast. After noncontrast imagin g is performed, CT angiogram is performed during injection of Omnipaque 350; 100 mL IV.. Sagittal and coronal reconstructions, sagittal and coronal MIP imaging is submitted. All CT scans at [facility] [place] use at least one of these dose optimization techniques: automated exposure control; mA and/or kV adjustment per patient size (includes targeted exams where dose is matched to clinical indication) ; or iterative reconstruction. DLP: 616.64 mGy.cm COMPARISON: 02/08/2023, 10/20/2021 Mild dilatation of the ascending thoracic aorta to 4.2 cm. No progression of the bowel dilatation. Mi nimal atherosclerotic plaque. Descending aorta is normal. Great vessels arise normally. No aortic dis section. Normal size pulmonary artery. No filling defects in the pulmonary artery. No RIGHT heart strain. Mode rate tricuspid regurgitation into the hepatic veins. Heart size is normal. Hyperinflated lungs with emphysema. 6 mm noncalcified nodule RIGHT lower lobe stable since 10/20/2021. No new pulmonary mass. No pneumonia. No mediastinal or hilar adenopathy. Small hiatal hernia. No adrenal mass. Increase in thoracic kyphosis. Mild degenerative changes in the vertebral bodies. CT/CT angio chest [id number] IMPRESSION: 1. Stable minimal ascending thoracic aortic aneurysm at 4.2 cm. 2. No aortic dissection or significant plaque. 3. Normal pulmonary artery. 4. Tricuspid regurgitation into the hepatic veins. 5. Long-term stability 6 mm noncalcified RIGHT lower lobe nodule.
[2024-06-17] MEDS: iohexol 350 mg/mL 500 mL Btl (per mL) IV (09:33)
== END 2024-06-17 09:00 | disposition home or self-care (01) ==
LOC: RAD 09:00
PROVIDERS: PCP Nurse Practitioner Family; Visit Provider Nurse Practitioner Family
DX: I71.20 Thoracic aortic aneurysm, without rupture, unspecified (principal); I36.1 Nonrheumatic tricuspid (valve) insufficiency; J43.9 Emphysema, unspecified; R91.1 Solitary pulmonary nodule
CPT/HCPCS: 71275; 80053; 82306; 83735; 85025; 86617

== ENCOUNTER 2024-06-21 10:29 | Outpatient (CLI) | payer MEDICARE, SELFPAY ==
[2024-06-21 11:26] VITALS: BMI 25.8
--- NOTE | 2024-06-21 11:26 | NMCV_ITS ---
NM tino perf SPECT r/s* [id number] Mike Schwartz Age: 63 Gender: M : 1960 Exam Date: 06/21/2024 11:18 Ordering Phys: Amanda Salamanca Technologist: ZBIGNIEW Mitchell Exam Location: [facility] Indications: CP STRESS TEST [facility] IMAGE PROTOCOL Rest/Stress 1 Lexiscan Day Radiopharmaceutical Dose (mCi) Administration Site Administered by Rest: Tc-99m 10.5 IV Deloris Funez, BOAT CLEANING SUPERVISOR Sestamibi Stress:Tc-99m 32.9 IV Deloris Johngle, BOAT CLEANING SUPERVISOR Sestamibi Rest: 21-Jun-2024 60 Discovery 630 Stress: 21-Jun-2024 30 Discovery 630 0.4mg Lexiscan. Images obtained in supine and prone position. SPECT RESULTS Technical Quality: Good Raw Data Analysis: Normal Image Corrections: No attenuation or motion correction applied Summed Stress Score: 0 Summed Rest Score: 0 Summed Difference Score: 0 PERFUSION FINDINGS Fairly uniform myocardial tracer uptake with no significant Perfusion abnormalities. FUNCTIONAL RESULTS (calculated via Gated SPECT) Stress Image LV EF (%): 77 Stress EDV (mL):77 TID: 0.93 Stress ESV (mL):18 FUNCTIONAL FINDINGS: Segmental wall motion analysis revealing no gross wall motion abnormalities IMPRESSIONS 1. Myocardial perfusion imaging revealing uniform myocardial tracer uptake with no significant perfusion abnormalities. 2. Normal LV ejection fraction of 77%. 3. LV wall motion analysis revealing no gross wall motion abnormalities. 4. Normal LV volume. Low probability for coronary ischemia, based on the above findings Compared to the study from 02/24/2021, there may not be a significant change Dr Jair Morales MD [facility] (Electronically Signed) Final Date: 21 June 2024 15:21 S
--- NOTE | 2024-06-21 11:26 | ECG_ITS ---
[employer] [email or web address] Test Date: 2024-06-21 Pat Name: Mike Schwartz Department: Room: Gender: Male Cardiac Rn: : 1960 Requested By: Amanda Salamanca Order Number: [id number] Aleah MD: Jair Morales M.D. Interpretive Statements Lung unchanged pre/post procedure; Intraprocedure shortess of breath; Symptoms resoled by discharge PROCEDURE: At the baseline, the EKG revealed sinus bradycardia with a rate of 56 bpm. Poor R wave progression. Possible old septal [place].. The baseline heart was 56 bpm with a blood pressue of 129/88 mm of Hg Lexiscan was infused over a period of 20 seconds. A total of 0.4 milligrams of Lexiscan was infused. The stress phase was continued for a total of 5 minutes. Heart rate at the end of the stress phase was 76 bpm with a blood pressure 108/75 mm of Hg. The EKG at the peak infusion revealed no significant changes. Sestamibi was injected 20 seconds after the Lexiscan infusion. Heart rate at the end of the recovery phase was 75 bpm with a blood pressure of 104/77 mm of Hg. CONCLUSION: 1. No significant EKG changes with the LexiScan infusion 2. No LexiScan induced chest pain or cardiac arrhythmia 3. Normal blood pressure and heart rate response 4. Sestamibi/sestamibi perfusion scan pending; see separate report. Electronically Signed On 06-22-2024 13:29:00 TECHNICAL MANAGER by Jair Morales M.D. [email or web address]
[2024-06-21] MEDS: regadenoson 0.4 Mg/5 ml Syringe IVP (11:58)
[2024-06-21 12:12] VITALS: BP 107/77; PULSE 70
== END 2024-06-21 10:30 | disposition home or self-care (01) ==
LOC: CDL 10:30
PROVIDERS: PCP Nurse Practitioner Family; Visit Provider Nurse Practitioner Family
DX: I25.10 Atherosclerotic heart disease of native coronary artery without angina pectoris (principal); I10 Essential (primary) hypertension; R06.02 Shortness of breath
CPT/HCPCS: 36415; 78452; 93017; 96374; A9500; J2785

== ENCOUNTER → 2024-06-25 10:30 | Outpatient (BNVA) | payer MEDICARE, SELFPAY | PROVIDERS: PCP Nurse Practitioner Family; Visit Provider Student in an Organized Health Care Education/Training Program | DX: R50.9 Fever, unspecified (principal); Z79.899 Other long term (current) drug therapy; Z12.5 Encounter for screening for malignant neoplasm of prostate; Z21 Asymptomatic human immunodeficiency virus [HIV] infection status; Z86.19 Personal history of other infectious and parasitic diseases | CPT/HCPCS: 36415; 80053; 81001; 82085; 82164; 84443; 85025; 85651; 86038; 86140; 86200; 86431; 86480; 86592; 86611; 86622; 86705; 86706; 86709; 86803; 87040; 87340; 87806; 99205; G0103 ==

== ENCOUNTER 2024-07-12 11:14 | Outpatient (CLI) | payer MEDICARE, SELFPAY | END 2024-07-12 11:15 | disposition home or self-care (01) | PROVIDERS: PCP Nurse Practitioner Family; Visit Provider Student in an Organized Health Care Education/Training Program | DX: R50.9 Fever, unspecified (principal) | CPT/HCPCS: 36415; 86698; 87385 ==

== ENCOUNTER 2024-10-04 12:36 | Outpatient (CLI) | payer MEDICARE, SELFPAY ==
--- NOTE | 2024-10-04 12:30 | CT_ITS ---
WS: [id number] CT ABDOMEN PELVIS TECHNIQUE: Contrast-enhanced CT of the abdomen and pelvis with coronal and sagittal reformatted images. CLINICAL INFORMATION: fever of unknown origin COMPARISON: None. DLP: 374.[address] scans at [facility] [place] use at least one of these dose optimization techniques: automated exposure control; mA and/or kV adjustment per patient size (includes targeted exams where dose is matched to clinical indication); or iterative reconstruction. FINDINGS: Diffuse fatty infiltration of the liver. Normal portal vein and splenic vein. Normal spleen. Normal GE junction. Normal gallbladder. Normal pancreatic parenchymal enhancement. Pancreatic calcifications. Adrenal glands are normal. Normal renal parenchymal enhancement. No hydronephrosis. Small LEFT renal cysts. Normal sigmoid colon. Normal appendix in the RIGHT lower quadrant. No evidence of acute appendicitis. Slight atelectasis in the lung bases. Slight anterolisthesis L4 on L5 and L5 on S1. Celiac and SMA are patent. Slightly ectatic distal abdominal aorta measuring up to 2.1 x 2.1 cm. Mild prostate enlargement measuring 3.[address]/CT abdomen pelvis w con* [id number] IMPRESSION: 1. Mild diffuse fatty infiltration of the liver. 2. No hydronephrosis in either kidney. Small LEFT renal cysts. 3. No adenopathy in the abdomen or pelvis. 4. Mild prostate enlargement measuring 3.9 cm. Recommend correlation PSA. 5. Slightly ectatic distal abdominal aorta measuring 2.1 x 2.1 cm. 6. No other acute findings.
[2024-10-04 13:02] LABS: Blood Urea Nitrogen 18 mg/dL (8-23); Glomerular Filtration Rate 75.2 mL/min (90-130)
[2024-10-04] MEDS: iohexol 350 mg/mL 500 mL Btl (per mL) IV (13:07)
== END 2024-10-04 12:37 | disposition home or self-care (01) ==
LOC: RAD 12:36
PROVIDERS: PCP Nurse Practitioner Family; Visit Provider Student in an Organized Health Care Education/Training Program
DX: R50.9 Fever, unspecified (principal); K76.0 Fatty (change of) liver, not elsewhere classified; N28.1 Cyst of kidney, acquired; N40.0 Benign prostatic hyperplasia without lower urinary tract symptoms; K86.89 Other specified diseases of pancreas; J98.11 Atelectasis
CPT/HCPCS: 74177; 82565; 84520

== ENCOUNTER → 2024-11-04 10:30 | Outpatient (BNVA) | payer MEDICARE, SELFPAY | PROVIDERS: PCP Nurse Practitioner Family; Visit Provider Nurse Practitioner Family | DX: E53.8 Deficiency of other specified B group vitamins (principal); Z91.018 Allergy to other foods; I10 Essential (primary) hypertension; M79.606 Pain in leg, unspecified; E55.9 Vitamin D deficiency, unspecified | CPT/HCPCS: 80053; 82306; 82607; 85025; 86003; 86008 ==

== ENCOUNTER → 2025-01-15 15:19 | Outpatient (BNVA) | payer MEDICARE, SELFPAY | PROVIDERS: PCP Nurse Practitioner Family; Visit Provider Internal Medicine Cardiovascular Disease | DX: I25.10 Atherosclerotic heart disease of native coronary artery without angina pectoris (principal); I10 Essential (primary) hypertension; E78.2 Mixed hyperlipidemia; I71.20 Thoracic aortic aneurysm, without rupture, unspecified; G47.33 Obstructive sleep apnea (adult) (pediatric); Z79.02 Long term (current) use of antithrombotics/antiplatelets | CPT/HCPCS: 99214 ==

== ENCOUNTER → 2025-01-16 09:42 | Outpatient (BNVA) | payer MEDICARE, SELFPAY | PROVIDERS: PCP Nurse Practitioner Family; Referring Provider Nurse Practitioner Family; Visit Provider Internal Medicine Rheumatology | DX: M06.041 Rheumatoid arthritis without rheumatoid factor, right hand (principal); M06.042 Rheumatoid arthritis without rheumatoid factor, left hand; Z79.899 Other long term (current) drug therapy; Z71.85 Encounter for immunization safety counseling; M25.50 Pain in unspecified joint | CPT/HCPCS: 36415; 80076; 82565; 83520; 85025; 85651; 86140; 86480; 86704; 86803; 87340; 99204 ==

== ENCOUNTER → 2025-02-03 11:30 | Outpatient (BNVA) | payer MEDICARE, SELFPAY | PROVIDERS: PCP Nurse Practitioner Family; Visit Provider Nurse Practitioner Family | DX: L50.0 Allergic urticaria (principal); K90.49 Malabsorption due to intolerance, not elsewhere classified; G25.81 Restless legs syndrome | CPT/HCPCS: 80053; 82728; 82785; 83550; 85025; 86001; 86003 ==

== ENCOUNTER → 2025-05-15 09:15 | Outpatient (BNVA) | payer MEDICARE, SELFPAY | PROVIDERS: PCP Nurse Practitioner Family; Visit Provider Nurse Practitioner Family | DX: I10 Essential (primary) hypertension (principal); E78.00 Pure hypercholesterolemia, unspecified | CPT/HCPCS: 80053; 80061 ==

== ENCOUNTER → 2025-07-17 09:28 | Outpatient (BNVA) | payer MEDICARE, SELFPAY | PROVIDERS: PCP Nurse Practitioner Family; Visit Provider Nurse Practitioner Family | DX: I25.10 Atherosclerotic heart disease of native coronary artery without angina pectoris (principal); I10 Essential (primary) hypertension; E78.5 Hyperlipidemia, unspecified; I71.20 Thoracic aortic aneurysm, without rupture, unspecified; F17.210 Nicotine dependence, cigarettes, uncomplicated | CPT/HCPCS: 99214 ==